=== PATIENT | female | born 1970 | race Caucasian/White ===

== ENCOUNTER → 2019-05-18 | Outpatient (CLI) | payer OTHER ==
[~2019-05-18] MED LIST: FLUO40CA2 PO
[2019-05-18 14:56] LABS: BASO % 1 % (0-3); EOS # 0.1 x10^3/uL (0.0-0.7); EOS % 2 % (0-3); HEMATOCRIT 28.8 % (36.0-47.0); HEMOGLOBIN 8.9 g/dL (12.0-15.5); LYMPH # 1.4 x10^3/uL (1.0-4.8); LYMPH % 27 % (24-48); MEAN CORPUSCULAR HEMOGLOBIN 21 pg (25-35); MEAN CORPUSCULAR HGB CONC 31 g/dL (31-37); MEAN CORPUSCULAR VOLUME 66 fL (79-100); MONO # 0.4 x10^3/uL (0.0-1.1); MONO % 8 % (0-9); NEUT # 3.3 x10^3/uL (1.8-7.7); NEUT % 62 % (31-73); PLATELET COUNT 192 x10^3/uL (140-400); RED BLOOD COUNT 4.37 x10^6/uL (3.50-5.40); RED CELL DISTRIBUTION WIDTH 20.1 % (11.5-14.5); WHITE BLOOD COUNT 5.3 x10^3/uL (4.0-11.0)
--- NOTE | 2019-05-18 15:03 | EKG ---
[facility] [address] [place] [address] Test Date: 2019-05-18 Test Time: 14:48:47 Pat Name: MARK ANTHONY YAN Department: Room: Gender: F [employer]: LUDIN : 1970 Requested By: MARIA ISABEL SCHULTE Order Number: [id number] Reading MD: Tomer Stratton MD Measurements Intervals [place] Rate: 58 P: 27 [place]: 146 QRS: 14 QRSD: 82 T: 11 QT: 404 QTc: 400 Interpretive Statements SINUS RHYTHM RBBB Electronically Signed On 05-19-2019 16:25:27 OFFICE ADMINISTRATOR by Tomer Stratton MD
[2019-05-18 15:08] LABS: ALBUMIN 3.7 g/dL (3.4-5.0); ALBUMIN/GLOBULIN RATIO 1.4 (1.0-1.7); CALCIUM 8.5 mg/dL (8.5-10.1); CREATININE 0.7 mg/dL (0.6-1.0); GFR 88.6; POTASSIUM 3.9 mmol/L (3.5-5.1); TOTAL BILIRUBIN 0.3 mg/dL (0.2-1.0); TOTAL PROTEIN 6.4 g/dL (6.4-8.2)
--- NOTE | 2019-05-18 15:48 | RAD ---
Chest, PA and Lateral: Technique: PA and lateral views of the chest were obtained. History: Preop hysterectomy. Comparison: None. Findings: The heart and pulmonary vasculature appear within normal limits. The lungs are clear. The pleural margins are clear. Impression: No acute chest process is seen. Electronically signed by: Prasad Ramirez MD (05/18/2019 3:45 PM) [place] [id number]
[2019-05-18 16:25] LABS: ANISOCYTOSIS MOD; HYPOCHROMIA MARKED; PLT ESTIMATE ADEQUATE (ADEQUATE)
[2019-05-18 16:26] LABS: MICROCYTOSIS MARKED; OVALOCYTES FEW
== END | disposition home or self-care (01) ==
LOC: SURGPAT 14:07
PROVIDERS: ATTEND Obstetrics & Gynecology
DX: Z01.818 Encounter for other preprocedural examination (principal); N85.2 Hypertrophy of uterus; I45.10 Unspecified right bundle-branch block
CPT/HCPCS: 36415; 71046; 80053; 85025; 93005

== ENCOUNTER 2019-05-25 06:12 | Observation (INO) | payer OTHER ==
[2019-05-25] VITALS (11 sets, daily range): BP systolic 110–120; BP diastolic 39–72
[~2019-05-25] VITALS: Ht 172.7 cm; Wt 124.7 kg
[~2019-05-25 06:12] MED LIST changes: +DESFLURANE > 120 MINUTES IH ONE; +DEXAMETHASONE SOD PHOS 4 MG/ML VIAL ONE; +LIDOCAINE 2% PF 5 ML VIAL. ONE; +ONDANSETRON PF 4 MG/2 ML VIAL. ONE; +PHENYLEPHRINE in 0.9% NACL PF 1 MG/10 ML SYRINGE. IV ONE; +PROPOFOL 20 ML IV ONE; +ROCURONIUM 50 MG/5 ML VIAL. ONE; +SUCCINYLCHOLINE 200 MG/10 ML VIAL. ONE; +fentaNYL PF VIAL 100 MCG/2 ML VIAL ONE
[2019-05-25] MEDS: IV RINGERS,LACTATED 1000ML 1,000 ML IV SCH ×2 (06:45→10:53)
[2019-05-25 06:53] LABS: HEMATOCRIT 30.1 % (36.0-47.0); HEMOGLOBIN 9.3 g/dL (12.0-15.5)
[2019-05-25] MEDS ORDERED: ONDANSETRON PF 4 MG/2 ML VIAL. IV PRN ×2 (07:00→10:30)
[2019-05-25] MEDS ORDERED: fentaNYL PF VIAL 100 MCG/2 ML VIAL IV PRN (07:00)
[2019-05-25] MEDS ORDERED: PROCHLORPERAZINE 10 MG/2 ML VIAL. IV PRN (07:00)
[2019-05-25] MEDS ORDERED: HYDROmorphone 2 MG/ML VIAL IV PRN (07:00)
[2019-05-25] MEDS ORDERED: MORPHINE SULFATE 2 MG/ML VIAL. IV PRN ×2 (07:00→10:30)
[2019-05-25] MEDS ORDERED: BUPIVACAINE-EPI 0.25%-1:200000 MPF 30 ML VIAL. ONE (07:27)
[2019-05-25] MEDS ORDERED: ESTROGENS, CONJ VAGINAL CREAM 30GM TUBE. ONE (07:27)
[2019-05-25] MEDS ORDERED: INDIGOTINDISULFONATE SODIUM 40 MG/5 ML AMPUL. ONE (07:28)
[2019-05-25] MEDS ORDERED: MIDAZOLAM HCL/PF 2 MG/2 ML VIAL. ONE (07:37)
[2019-05-25] MEDS: FLUoxetine HCL 20 MG CAPSULE PO SCH (09:00)
[2019-05-25] MEDS ORDERED: ALBUMIN HUMAN 5% 500 ML IV ONE (09:09)
[2019-05-25] MEDS ORDERED: ePHEDrine PF IN SALINE 50 MG/10 ML SYRINGE. IV ONE (09:09)
[2019-05-25] MEDS ORDERED: ROCURONIUM 50 MG/5 ML VIAL. ONE (09:14)
[2019-05-25] MEDS ORDERED: KETOROLAC 30 MG/ML VIAL. ONE (09:31)
[2019-05-25] MEDS ORDERED: GLYCOPYRROLATE 1 MG/5 ML VIAL. ONE (09:59)
[2019-05-25] MEDS ORDERED: NEOSTIGMINE METHYLSULFATE 5 MG/5 ML SYRINGE. ONE (09:59)
[2019-05-25] MEDS ORDERED: SEVOFLURANE > 120 MINUTES. IH ONE (10:10)
[2019-05-25] MEDS ORDERED: fentaNYL PF VIAL 100 MCG/2 ML VIAL ONE (10:11)
[2019-05-25] MEDS ORDERED: ZOLPIDEM 5 MG TABLET. PO PRN (10:30)
[2019-05-25] MEDS ORDERED: SIMETHICONE 80 MG TAB.CHEW PO PRN (10:30)
[2019-05-25] MEDS ORDERED: NALOXONE 0.4 MG/ML VIAL. IV PRN (10:30)
[2019-05-25] MEDS ORDERED: diphenhydrAMINE 50 MG/ML VIAL IV PRN (10:30)
[2019-05-25] MEDS ORDERED: LACTULOSE 20 GM/30 ML SOLUTION. PO PRN (10:30)
[2019-05-25] MEDS ORDERED: CALCIUM CARBONATE 500 MG TAB.CHEW PO PRN (10:30)
[2019-05-25] MEDS ORDERED: oxyCODONE/APAP 5/325 1 TAB TABLET PO PRN (10:30)
[2019-05-25] MEDS ORDERED: MAG HYDROX/ALUMINUM HYD/SIMETH 30 ML ORAL.SUSP PO PRN (10:30)
[2019-05-25] MEDS ORDERED: diphenhydrAMINE HCL 25 MG CAPSULE PO PRN (10:30)
[2019-05-25] MEDS ORDERED: ESTRADIOL WEEKLY 0.1 MG PATCH. TD ONE (10:30)
[2019-05-25] MEDS ORDERED: 0.9 % SODIUM CHLORIDE 10 ML DISP.SYRIN. IV PRN (10:30)
[2019-05-25] MEDS ORDERED: MAGNESIUM HYDROXIDE 2,400 MG/30 ML ORAL.SUSP. PO PRN (10:30)
--- NOTE | 2019-05-25 10:44 | PDOC ---
BRIEF OPERATIVE NOTE Date: May 25, 2019 Pre-Op Diagnosis DUB, anemia, enlarged uterus Post-Op Diagnosis same plus mild adhesive disease Procedure Performed LAVH/BSO/adhesiolysis Surgeon Dr. Maria Victoria Dowd Music Educator MANSI Rosales Anesthesiologist Dr. Nash Anesthesia Type: General Blood Loss 200cc IV Fluid 1300cc crystalloid, 500 albumin Urine Output 275cc clear via colon Specimens Obtained cervix, uterus, bilateral tubes and ovaries (cyst on right ovary also) Findings enlarged uterus, evidence of prior tubal occlusion, normal bilateral tubes, normal left ovary, right ovary with what appeared to be a small hemorrhagic cyst, adhesions to left IP ligament and just above Left tube/ovary that had to be taken down to visualize ureter Complications none Operative Note [id number] MARIA VICTORIA DOWD MD May 25, 2019 10:44
[2019-05-25] MEDS: fentaNYL PF VIAL 100 MCG/2 ML VIAL IV PRN ×2 (11:20→11:45)
[2019-05-25] MEDS ORDERED: ceFAZolin 2GM PREMIX 2 GM/50 ML BAG IV ONE (12:00)
--- NOTE | 2019-05-25 12:52 | OP ---
DATE OF SURGERY: 05/25/2019 PREOPERATIVE DIAGNOSES: Dysfunctional uterine bleeding with an enlarged uterus and menorrhagia to the point of anemia. She was 8 last week at her preop and she was up to 9 today the day of surgery. POSTOPERATIVE DIAGNOSES: Dysfunctional uterine bleeding with an enlarged uterus and menorrhagia to the point of anemia. She was 8 last week at her preop and she was up to 9 today the day of surgery plus mild adhesive disease. PROCEDURE PERFORMED: Laparoscopic-assisted vaginal hysterectomy, bilateral salpingo-oophorectomy, and adhesiolysis. SURGEON: Maria Isabel Dowd MD. MANAGER COMPLETIONS: MANSI Mckenzie. ANESTHESIOLOGIST: iTm Nash MD. ANESTHESIA: General. URINE OUTPUT: 275 mL clear via Shepherd catheter. BLOOD LOSS: 200 mL. INTRAVENOUS FLUIDS: 1300 mL of crystalloid and 500 mL of albumin. SPECIMENS: Cervix, uterus, bilateral tubes and ovaries with a cyst on the right ovary. FINDINGS: She had an enlarged uterus with evidence of prior tubal occlusion with Falope rings. Otherwise, normal tubes, normal left ovary, what appeared to be a small hemorrhagic cyst on the right ovary. She did have epiploic and descending colon adhesions to the left infundibulopelvic ligament that had to be taken down to visualize the left ureter going into the pelvis there. She had upper abdominal adhesions on the right and left side, I did not touch, those were taken down, they appeared to be omental, not exactly sure what those are from, it is her only abdominal surgery, had been a tubal but I did document and take pictures of that, but those were left alone. I did visualize a normal appendix as well. COMPLICATIONS: None. DESCRIPTION OF PROCEDURE: This patient was taken to the operating room where general anesthesia was placed. The patient was placed in dorsal lithotomy position in [facility]. The patient's abdomen and vagina were both prepped and draped in the normal sterile fashion and a Shepherd catheter had been inserted under sterile technique. She had already received her preoperative antibiotics as well. Upon my arrival, a timeout was performed. Once everyone agreed, a bivalve speculum was placed in the patient's vagina. A single-tooth tenaculum was used to grasp the anterior lip of the cervix. A 10 mL of 0.25% Marcaine with epinephrine was used to circumferentially inject around the cervix for both hemodissection and hemostatic purposes later. The Valtchev uterine manipulator was then placed through the endocervical os, locked on the single tooth tenaculum and the bivalve speculum was then removed. Top gloves were discarded and changed. Attention was then turned to the abdomen. It was decided with her enlarged uterus to do a left upper quadrant entry, so a small incision was made in the midclavicular area, a couple of centimeters down from the rib margin. A small incision was made. A Jennifer was used to dissect through the subcuticular layer to the fascia and the 5-mm Visiport was used to directly enter the abdominal cavity. Opening patient's pressure was 5-6 mmHg and direct abdominal placement was confirmed via the laparoscope. It was here that I could see the left upper quadrant omental adhesions on this side, but it was not where I was, but to the left of my port. At this point, the patient was placed in Trendelenburg. The overhead lights were dimmed. We placed left and right lower quadrant ports under direct visualization as well, making finding an area clear of any vasculature down there, all the inside was clear, so transilluminating the abdominal wall, finding an area clear of any vasculature, making a small incision in the skin and placing the 5 mm disposable atraumatic trocar under direct visualization without difficulty. 4-5 mL of air were placed in these trocar cuffs. At this point, the camera was moved to look at the left upper quadrant port. Again, it was confirmed, it was clear of all the adhesions and it was also insufflated with 4-5 mL of air in the trocar cuff. At this point, the patient was again already in Trendelenburg. The right upper quadrant appeared grossly normal, but she did have some adhesions in there as well. The uterus was enlarged and heavy but the posterior area was clear. I was able to get the right tube and ovary up very easily, but it had a cyst on there. The left tube and ovary had some scar tissue and adhesions. So, this is where I started. I took down because I needed to take down the adhesions because I could not visualize the ureter coming in and diving into the pelvis on this side. She was so long, waisted with the left upper quadrant port, I could get the camera down in the pelvis below the uterus. So at this point, now that I knew the umbilicus was clear, I did place a fourth 5 mm disposable atraumatic trocar at the umbilicus under direct visualization as well and I moved the camera down there to reach, so I had four 5-mm ports. So, once this was visualized, the left tube and ovary were easily elevated. The ureter was found coursing low and deep in the pelvis and watching it peristalsed, so staying high on the infundibulopelvic ligament under the ovary, cauterizing and cutting, taking it over towards the uterus crossing the left round ligament, cauterizing and cutting with the LigaSure and then starting the bladder flap on this side. The uterus was pushed cephalad. The Maryland was used to elevate the bladder flap. Once it was there and the monopolar hook was used to cauterize and cut across it and then peeling it down, so the bladder flap was created sharply under direct visualization without difficulty. Then, we went to the right side. Again, the right tube and ovary were clear of any adhesions. There was a cyst on this ovary that was elevated. The ureter was actually higher on this side and it kind of went up and then curved down and then dove down, so I made sure that we were very, very high under the ovary above the ureter because it was higher on the right side than the left side, but it was visualized and we did watch it peristalsed but I kind of went up and did a loop on the right sidewall, went up and then dove down. So staying high, she did wish both ovaries out staying high on the infundibulopelvic ligament, taking this ovary as well, staying right under the tube, right under the round ligament to the uterus and staying right on the uterus and crossing the round there to make sure that we were very clear of the ureter on the sidewall. Crossing the right round ligament, the peritoneal bladder flap was almost all the way over at this point. So, I went down hugging the uterus and getting the uterine vessels on this side and then I went back to the left and was able to hug the uterus and get the uterines on the left. The left was actually easier and cleared and the bladder was down and I was able to almost go all the way down to the uterosacral ligaments on the left under direct visualization and hugging the uterus with the cervix bulging behind me, cauterizing and cutting with the LigaSure. The right side had some more fatty adhesions under the bladder that had to be taken down, so I could get to the side of the cervix and go down and get some through the cardinal and broad ligaments, cauterizing and cutting, skeletonizing it out. I left some just because I knew I could get to it from the bottom and clear it up and off as well. So once I obtained the vasculature, the uterus was blanched, it was free posteriorly, the bladder was down anteriorly. I went ahead and decided to go below. All instruments were removed from the abdomen. The patient was flattened out. Overhead lights were turned on. Gas was turned off and everything was removed from the laparoscopic abdominal area and attention was turned vaginally. The single tooth and Valtchev were removed. A weighted speculum was placed in the patient's vagina. Thyroid Deepak clamps were placed on the anterior and posterior lips of the cervix respectively. A scalpel was used to make a circumferential incision in the cervix. An open Ray-Carolyn 4 x 4 was used to gently push up the anterior bladder peritoneum once it was skeletonized and it slid right in the anterior cul-de-sac. The Ray-Carolyn was removed and the curved Mary was placed in the anterior cul-de-sac. The cervix was elevated and the posterior cul-de-sac was sharply entered with the Arana scissors. A #0 Vicryl stitch was used to secure the posterior peritoneum here to the vaginal cuff. It was tagged with a curved Jennifer clamp and the needle was cut and passed off and it was tagged with a curved Jennifer. At this point, the short weighted vaginal speculum was removed and replaced with the long weighted Ainsley speculum in the posterior cul-de-sac. Curved Nan clamps x 2 were placed on the patient's left uterosacral ligament where they were doubly clamped with curved Heaneys, cut with curved Arana scissors and suture ligated x 2 with 0 Vicryl. Second one was taken through the vaginal cuff securing uterosacral ligament to the vaginal cuff and tagging it with a straight Jennifer clamp and cutting and passing the needle off. This was done exactly the same on the patient's right side, double clamping the uterosacrals with curved Nan's, cutting with Arana scissors, suture ligating x 2 with 0 Vicryl and taking it through the vaginal cuff, tagging it with a straight Jennifer clamp and cutting and passing the needle off. At this point, the right angle Mixter clamp was used to go around the remaining pedicles just to delineate it and the vaginal LigaSure was used to cauterize and cut the remaining pedicles on both sides. The cervix, uterus, bilateral tubes and ovaries were actually delivered in total and passed off for permanent pathology. There was some bleeding on the patient's left side of the uterosacral. Initially, it was grabbed with Russians and cauterized with the vaginal LigaSure. As I thought it was a little higher, I went ahead and put a burlisher on behind it and ended up placing a 2-0 Vicryl stitch around the burlisher with excellent results. There was some cuff bleeding that I put a few interrupted stitches securing the peritoneum to the vaginal cuff with excellent results and it stopped bleeding as well on both sides. The long Ainsley speculum was removed and replaced with the short weighted vaginal speculum, that is when the vaginal cuff bleeding was seen in a few interrupted stitches on both sides securing peritoneum to the vaginal cuffs were done with 2-0 Vicryl. Once this was done, a sponge stick was placed to secure the bleeding from above. All the pedicles at this point remained dry. The cuff was good. So, the sponge stick was removed and I attempted to find the anterior bladder edge, but it was very, very elevated, so I grasped a little bit of that fatty tissue that was just below the cuff and grabbed it. I took 2-0 Vicryl there through the left uterosacral ligament, posterior peritoneum and right uterosacral ligament, closing the peritoneum in a pursestring like fashion. Once this was done, the right and left uterosacral tags were clipped as well. At this point, a full length 2-0 Vicryl was used to close the vaginal cuff in an anterior to posterior running locked fashion and it was tied to that posterior cuff tag. I did place a few interrupted stitches just for hemostasis and security. Once this was done, a sponge stick was used to examine the cuff and there was absolutely no bleeding and it looked good. All instruments were removed from the vagina and attention was turned above for a second look. All sponge, lap and needle counts were correct x 2 by OR personnel. All gloves were discarded and changed before returning above. At this point, the lights were dimmed again. The patient was placed back in Trendelenburg. Gas was reinsufflated and a second look revealed complete hemostasis. She was copiously irrigated. Tisseel was placed over the pedicles. The right and left pericolic gutters were clear. The appendix was visualized and found and was normal and everything was dry, even over on the left side where I took down a few of the adhesions on the left IP ligament. Again, Tisseel had been placed over the vaginal cuff and the ovarian pedicles with excellent results. Pictures were taken of all the above. The gas was taken out of all 4 trocar sites. The left upper quadrant port was removed. The right lower quadrant port was removed. The left lower quadrant port was removed. First left upper, then right lower, then left lower and then gas was released from that umbilical port and then it was removed as well. All four port sites were closed with 4-0 nylon at the skin and injected with 0.25% Marcaine with epinephrine. 10-12 mL of local was used on these. Once this was done, the patient was awakened from anesthesia and brought to recovery room in stable condition. MARIA ISABEL DOWD MD DR: ROSA ISELA/connor JOB#: [id number] / [id number]
[2019-05-25] MEDS: HYDROcodone/APAP 5/325MG 1 TAB TABLET PO PRN (20:53)
[2019-05-26 02:10] VITALS: BP 122/50
[2019-05-26 04:26] LABS: CALCIUM 8.6 mg/dL (8.5-10.1); CREATININE 0.8 mg/dL (0.6-1.0); GFR 75.9; POTASSIUM 3.9 mmol/L (3.5-5.1)
[2019-05-26 06:30] VITALS: BP 127/58
[2019-05-26] MEDS: HYDROcodone/APAP 5/325MG 1 TAB TABLET PO PRN ×2 (06:34→10:29)
[2019-05-26 09:20] VITALS: BP 113/56
[2019-05-26 09:21] VITALS: BP 115/39
[2019-05-26 09:22] VITALS: BP 110/44
--- NOTE | 2019-05-26 09:26 | PDOC ---
SURGICAL PROGRESS NOTE Subjective Doing ok without complaints. Tolerating regular diet, voiding without catheter, ambulating well. No vaginal bleeding except scant spotting. Wants to go home. No complaints no dizziness or lighheadness Vital Signs Vital Signs Date Time Temp Pulse Resp B/P (MAP) Pulse Ox O2 Delivery O2 Flow Rate FiO2 05/26/19 06:34 20 05/26/19 06:30 98.1 75 127/58 (81) 93 Room Air 98.1 05/25/19 11:07 10 I&O Intake and Output 05/26/19 07:00 Intake Total 3670 ml Output Total 475 ml Balance 3195 ml Intake Oral 1020 ml IV Total 2250 ml Other 400 ml Output Urine Total 275 ml Estimated Blood Loss 200 ml # Voids 5 PATIENT HAS A WILSON: No General: Alert, Oriented X3, Cooperative, No acute distress HEENT: Atraumatic Heart: Regular rate Abdomen: Normal bowel sounds, Soft Extremities: No edema, Normal pulses, No tenderness/swelling, Other (negative homans bilaterally) Skin: No rashes, No breakdown, No significant lesion Neuro: Normal speech Psych/Mental Status: Mental status NL, Mood NL Labs Laboratory Tests Test 05/25/19 06:31 05/25/19 06:40 05/25/19 10:55 05/26/19 04:00 Bedside Urine HCG, Qualitative Hcg negative (Negative) Hemoglobin 9.3 g/dL (12.0-15.5) Hematocrit 30.1 % (36.0-47.0) 27.5 % (36.0-47.0) 25.8 % (36.0-47.0) Mean Corpuscular Hemoglobin Concent 31 g/dL (31-37) Sodium Level 144 mmol/L (136-145) Potassium Level 3.9 mmol/L (3.5-5.1) Chloride Level 107 mmol/L (98-107) Carbon Dioxide Level 28 mmol/L (21-32) Anion Gap 9 (6-14) Blood Urea Nitrogen 9 mg/dL (7-20) Creatinine 0.8 mg/dL (0.6-1.0) Estimated GFR (Cockcroft-Gault) 75.9 Glucose Level 127 mg/dL (70-99) Calcium Level 8.6 mg/dL (8.5-10.1) Laboratory Tests Test 05/25/19 10:55 05/26/19 04:00 Hematocrit 27.5 % (36.0-47.0) 25.8 % (36.0-47.0) Sodium Level 144 mmol/L (136-145) Potassium Level 3.9 mmol/L (3.5-5.1) Chloride Level 107 mmol/L (98-107) Carbon Dioxide Level 28 mmol/L (21-32) Anion Gap 9 (6-14) Blood Urea Nitrogen 9 mg/dL (7-20) Creatinine 0.8 mg/dL (0.6-1.0) Estimated GFR (Cockcroft-Gault) 75.9 Glucose Level 127 mg/dL (70-99) Calcium Level 8.6 mg/dL (8.5-10.1) I have reviewed the following labs, vitals, nursing, orthostastics Cardiovascular: No pertinent hx Pulmonary: No pertinent hx GI: No pertinent hx Heme/Onc: Anemia NOS Psych: No pertinent hx Infectious disease: No pertinent hx Assessment/Plan POD#1 s/p LAVH/BSO/adhesiolysis Routine po care chronic anemia, stable with a normal postoperative drop orthostatics prove pt stable she agrees to push fluids, iron bid will call if develops any symptoms has percocet script at home OK for otc iburprofen, prn keep scheduled follow up in one week with me NPV x 6 weeks light/limited x [address] while on narcotic pain meds and at least one week Call or return sooner for any other questions or concerns not limited to but including pain unrelieved with pain meds, increased or unexplained vaginal bleeding or T>100.4 MARIA ISABEL SCHULTE MD May 26, 2019 09:26
--- NOTE | 2019-05-26 09:30 | PDOC3 ---
Discharge Summary Visit Information Date of Admission: May 25, 2019 Date of Discharge: May 26, 2019 Final Diagnosis enlarged uterus, menorrhagia/dub to anemia Brief Hospital Course Allergies Allergies Coded Allergies Type Severity Reaction Last Updated Verified No Known Drug Allergies 05/25/19 No Vital Signs Vital Signs Date Time Temp Pulse Resp B/P (MAP) Pulse Ox O2 Delivery O2 Flow Rate FiO2 05/26/19 06:34 20 05/26/19 06:30 98.1 75 127/58 (81) 93 Room Air 98.1 05/25/19 11:07 10 Lab Results Laboratory Tests Test 05/25/19 06:31 05/25/19 06:40 05/25/19 10:55 05/26/19 04:00 Bedside Urine HCG, Qualitative Hcg negative (Negative) Hemoglobin 9.3 g/dL (12.0-15.5) Hematocrit 30.1 % (36.0-47.0) 27.5 % (36.0-47.0) 25.8 % (36.0-47.0) Mean Corpuscular Hemoglobin Concent 31 g/dL (31-37) Sodium Level 144 mmol/L (136-145) Potassium Level 3.9 mmol/L (3.5-5.1) Chloride Level 107 mmol/L (98-107) Carbon Dioxide Level 28 mmol/L (21-32) Anion Gap 9 (6-14) Blood Urea Nitrogen 9 mg/dL (7-20) Creatinine 0.8 mg/dL (0.6-1.0) Estimated GFR (Cockcroft-Gault) 75.9 Glucose Level 127 mg/dL (70-99) Calcium Level 8.6 mg/dL (8.5-10.1) Laboratory Tests Test 05/25/19 10:55 05/26/19 04:00 Hematocrit 27.5 % (36.0-47.0) 25.8 % (36.0-47.0) Sodium Level 144 mmol/L (136-145) Potassium Level 3.9 mmol/L (3.5-5.1) Chloride Level 107 mmol/L (98-107) Carbon Dioxide Level 28 mmol/L (21-32) Anion Gap 9 (6-14) Blood Urea Nitrogen 9 mg/dL (7-20) Creatinine 0.8 mg/dL (0.6-1.0) Estimated GFR (Cockcroft-Gault) 75.9 Glucose Level 127 mg/dL (70-99) Calcium Level 8.6 mg/dL (8.5-10.1) Brief Hospital Course Ms. Bower is a 48 old female who presented with DUB to anemia (hgb 8.3 on preop testing) with enlarged uterus. She underwent LAVH/BSO/adhesiolysis y esterday without complications. She has had an unremarkable postoperative course. She is anemic still of course since started that way , but asymptomatic with a normal expected drop from surgery only. Orthostatics stable, ambulating well, voiding, passing gas, tolerating regular diet and wants to go home. Pain well controlled with minimal meds Assessment Assessment POD#1 s/p LAVH/BSO/adhesiolysis Routine po care chronic anemia, stable with a normal postoperative drop orthostatics prove pt stable she agrees to push fluids, iron bid will call if develops any symptoms has percocet script at home OK for otc iburprofen, prn keep scheduled follow up in one week with me NPV x 6 weeks light/limited x [address] while on narcotic pain meds and at least one week Call or return sooner for any other questions or concerns not limited to but including pain unrelieved with pain meds, increased or unexplained vaginal bleeding or T>100.4 Discharge Information Condition at Discharge: Stable Follow Up: Weeks Disposition/Orders: D/C to Home Scheduled Fluoxetine Hcl (Fluoxetine Hcl) 40 Mg Capsule, 1 CAP PO [id number] for clarisse wynne, #30 Ref 2 (Reported) Entered as Reported by: Mira Meeks on 05/18/19 1421 Last Taken: Unknown Dose on 05/24/19 0800 Last Action: Converted on 05/25/19 0745 by MARIA ISABEL SCHULTE Patient Instructions Patient Instructions POD#1 s/p LAVH/BSO/adhesiolysis Routine po care chronic anemia, stable with a normal postoperative drop orthostatics prove pt stable she agrees to push fluids, iron bid will call if develops any symptoms has percocet script at home OK for otc iburprofen, prn keep scheduled follow up in one week with me NPV x 6 weeks light/limited x [address] while on narcotic pain meds and at least one week Call or return sooner for any other questions or concerns not limited to but including pain unrelieved with pain meds, increased or unexplained vaginal bleeding or T>100.4 Hemodynamically unstable?: No Hemodynamically unstable?: No Operative site or wounds?: Yes Poss blood loss?: Yes MARIA ISABEL SCHULTE MD May 26, 2019 09:30
[2019-05-26] MEDS: FLUoxetine HCL 20 MG CAPSULE PO SCH (10:28)
--- NOTE | 2019-05-27 08:07 | PATHOLOGY ---
[facility] Accession Number: [id number] . 01 Material submitted: . uterus - CERVIX, UTERUS, BILATERAL TUBES, BILATERAL OVARIES. Modifiers: bilateral . 01 Clinical history: . enlarged uterus . 02 Diagnosis: Uterus and bilateral fallopian tubes and ovaries, hysterectomy with bilateral salpingo-oophorectomy: - Adenomyosis, uterine corpus, with myometrial hypertrophy (uterine weight 179 grams). - Slightly disordered proliferative endometrium. - Leiomyomas, uterine corpus, intramural, few, the largest measuring 1.5 cm in greatest dimension. - Status post previous tubal ligation. - Paratubal cysts, bilateral. - Hemorrhagic luteinized cyst, right ovary. - Cystic follicle of left ovary. . (JPM:mm; 05/26/2019) [facility] 05/27/2019 0737 Local . 02 Comment: There is no atypia or evidence of malignancy. . (JPM:mml; 05/26/2019) . 02 Electronically signed: . Pedro Patel MD, Pathologist NPI- [id number] . 01 Gross description: . The specimen is received in formalin, labeled "Birttney Bower, cervix uterus bilateral tubes bilateral ovaries" and consists of an enlarged 179 g uterus with attached cervix measuring 11.0 x 7.1 x 5.0 cm. Attached are the bilateral tubo-ovarian complexes. The right weighs 10 g consisting of a fimbriated fallopian tube measuring 6.8 cm in length and up to 0.4 cm in diameter which is loosely attached to a ruptured cystic ovary measuring 4.3 x 1.8 x 0.9 cm. The left complex weighs 9 g consisting of a fimbriated fallopian tube measuring 4.5 cm in length and up to 0.5 cm in diameter attached to a cerebriform smooth cystic ovary measuring 2.3 x 2.3 x 0.8 cm. Both fallopian tubes are status post tubal ligation. The uterine serosa is pink-waters smooth shiny. The oval gaping cervical os (1.2 cm) is lined by glistening pink-waters ectocervical mucosa. It is bivalved revealing a pink-waters corrugated endocervical canal measuring 3.0 cm. The endometrial cavity is triangular measuring 6.0 cm in length and 4.6 cm in width which is lined by pink-red endometrium measuring 0.1 cm. The myometrium is pink-waters and measures up to 2.5 cm in thickness with three posterior intramural nodules measuring 0.5 x 0.5 cm and 1.5 x 1.3 cm. The 2 larger show homogeneous white whorled cut surfaces while the other smallest nodule shows yellow orange cut surfaces. No additional mass lesions are identified. Both fimbriated fallopian tubes are pink-purple smooth shiny with sectioning revealing a well-defined lumen. Each has a few paratubal cysts containing clear fluid measuring up to 1.2 cm. Sectioning the right ovary reveals a hemorrhagic chocolate cyst measuring 2.0 cm. Sectioning the left ovary reveals a single subcortical uniloculated cyst containing clear fluid as well as multiple corpora albicantia. The cyst measures up to 1.4 cm. Meter/Relay Craftsman sections are submitted as follows: . A1: Anterior cervix A2: Posterior cervix A3: Anterior endomyometrium A4: Posterior endomyometrium A5: Nodules A6: Right fallopian tube A7-A8: Right ovary A9: Left fallopian tube A10: Left ovary (SDY; 05/25/2019) SYU/SYU 05/26/2019 1619 Local . 02 Pathologist provided ICD-10: D25.1, N80.0, N85.9, N83.8 . 02 CPT . 235758 Specimen Comment: A courtesy copy of this report has been sent to [phone] Specimen Comment: Report sent to Specimen Comment: A duplicate report has been generated due to demographic updates. Performed at: 01 [facility] [address], [place], [place] [id number] MD Kwabena Deal MD Phone: [phone] Performed at: 02 [facility] [address] [place], [place] [id number] MD Pedro Patel MD Phone: [phone]
== END 2019-05-26 10:30 | disposition home or self-care (01) ==
LOC: SURG 06:12 → EDUNIT# 07:30 → 3 NORTH 10:44
PROVIDERS: ADMIT Obstetrics & Gynecology; ATTEND Obstetrics & Gynecology
DX: N93.8 Other specified abnormal uterine and vaginal bleeding (principal); N92.0 Excessive and frequent menstruation with regular cycle; N85.2 Hypertrophy of uterus
CPT/HCPCS: 36415; 58552; 80048; 81025; 85014; 85018; 86850; 86900; 86901; 88307; A7015; G0378; G0379; J0171; J0330; J0696; J1100; J2001; J2250; J2405; J2704; J2710; J3010; J3490; J7030; J7120; P9045; J1885; J2370

== ENCOUNTER 2021-07-02 10:00 | Day surgery (SDC) | payer OTHER ==
[~2021-07-02] VITALS: Ht 172.7 cm; Wt 120.0 kg
[~2021-07-02 10:00] MED LIST changes: +BUPIVACAINE-EPI 0.25% 30 ML VIAL KIT. ONE; +CAFF200T13 PO; -DESFLURANE > 120 MINUTES IH ONE; -DEXAMETHASONE SOD PHOS 4 MG/ML VIAL ONE; +HYDROmorphone 2 MG/ML INJ. IVP PRN; +IBUP-1027 PO; +IOHEXOL 300 MG/ML 50 ML VIAL. ONE; +IV RINGERS,LACTATED 1000ML 1,000 ML IV SCH; +LIDOCAINE 1% PF 5 ML VIAL. ONE; -LIDOCAINE 2% PF 5 ML VIAL. ONE; +MORPHINE SULFATE 2 MG/ML INJ. IVP PRN; -PHENYLEPHRINE in 0.9% NACL PF 1 MG/10 ML SYRINGE. IV ONE; +PROCHLORPERAZINE 10 MG/2 ML VIAL. IVP PRN; +PROPOFOL 10 MG/ML (20ML) VIAL. IV ONE; -PROPOFOL 20 ML IV ONE; -SUCCINYLCHOLINE 200 MG/10 ML VIAL. ONE; +SURGICEL HEMOSTAT 4X8 EACH. ONE; +ceFAZolin SODIUM 3 GM in IV DEXTROSE 5% 100ML 100 ML IV PRN; +fentaNYL PF VIAL 100 MCG/2 ML VIAL IVP PRN
[2021-07-02] MEDS ORDERED: ACETAMINOPHEN 500 MG TABLET PO ONE ×2 (10:05→10:30)
[2021-07-02] MEDS ORDERED: DEXAMETHASONE SOD PHOS 4 MG/ML VIAL ONE (10:13)
[2021-07-02 10:27] VITALS: BP 147/70
[2021-07-02] MEDS ORDERED: SUGAMMADEX SODIUM 200 MG/2 ML VIAL. IVP ONE (12:00)
--- NOTE | 2021-07-02 12:22 | PDOC4 ---
Operative Note Operative Note Date: July 02, 2021 at 12:20 PM Preoperative diagnosis: Chronic cholecystitis cholelithiasis Postoperative diagnosis: Same Procedure: Laparoscopic cholecystectomy fluorescein cholangiography Surgeon: Gabriel Specimen: Gallbladder Candy Feeder: None Dictation: Patient is a 50-year-old female with right upper quadrant abdominal pain ultrasound showing gallstones. Procedure of laparoscopic cholecystectomy was explained to the patient detail risk-benefit were also discussed including bleeding infection injury to intra-abdominal contents possible necessitating further open operations alternatives to this procedure also discussed with the patient who seemed to understand and gave a verbal written consent to have procedure performed. Patient was taken to the operating room placed in the supine position general anesthesia was initiated once patient was sleeping intubated her abdomen was prepped and draped usual sterile fashion using ChloraPrep. An area just below the umbilicus was injected with quarter percent Marcaine with epinephrine incision was made with 11 blade scalpel and a varies needle was placed within the abdomen creating pneumoperitoneum once this was completely millimeter port was placed in a 5 mm camera was placed within the abdomen which was inspected no other ab maladies were noted. 5 mm port was placed in the epigastrium a 5 mm port was placed in the right upper quadrant and a 5 mm port was placed in the lateral right abdomen all under direct visualization. The dome of the gallbladder is grasped retracted cephalad the infundibulum the gallbladder is grasped retracted laterally exposing the triangle of adherent tissues of the triangle were taken down exposing the cystic duct and cystic artery a fluorescein cholangiography was performed which showed good contrast material within the cystic duct and the common bile duct with no evidence of obstruction. The cystic duct was doubly clipped and transected as well as the cystic artery the gallbladder is taken off the liver with hook electrocautery placed in Endo Catch bag moving the umbilicus right upper quadrant was irrigated and suctioned dry hemostasis deemed be appropriate the pneumoperitoneum was reduced all ports were removed the fascial defect at the umbilicus was closed with a [id number] 0 Vicryl suture and skin was reapproximated all port sites for subcuticular Monocryl Mastisol Steri-Strips and island dressings were applied. Patient was awakened and extubated in the operating room taken to recovery in stable condition all sponge instrument needle counts listed as correct estimated blood loss 10 mL MAX REED MD Jul 02, 2021 12:22
[2021-07-02] MEDS ORDERED: OXYC-325 PO (12:24)
--- NOTE | 2021-07-02 12:26 | DISCH ---
DISCHARGE INSTRUCTIONS Condition on Discharge Condition on Discharge: Stable Activity After Discharge Activity Instructions for Disc: Avoid exertion Other activity instructions: No lifting more than 20 pounds for 2 Lifting Instructions after Dis: No heavy lifting Diet after Discharge Diet after Discharge: Low Fat Liquid Texture: Thin Liquid Wound Incision Care Other wound/incision instructi: Sparkle shower in 24-hour Contacting the DRViridiana after DC Call your doctor for: If your condition worsens Follow-Up Follow up with: Dr. Reed in 2 weeks Treatment/Equipment after DC Adaptive Equipment Issued: None MAX REED MD Jul 02, 2021 12:26
[2021-07-02] MEDS: fentaNYL PF VIAL 100 MCG/2 ML VIAL IVP PRN ×3 (12:44→13:09)
[2021-07-02] MEDS ORDERED: oxyCODONE/APAP 5/325 1 TAB TABLET PO ONE (13:00)
[2021-07-02 13:50] VITALS: BP 145/74
--- NOTE | 2021-07-03 18:08 | PATHOLOGY ---
[facility] Accession Number: [id number] . 01 Material submitted: . gallbladder - GALLBLADDER AND CONTENTS . 01 Clinical history: . LAP DIALLO . 02 Diagnosis: Gallbladder, laparoscopic cholecystectomy: - Cholelithiasis. - Cholesterolosis, focal. - Chronic cholecystitis. ([facility]; 07/03/2021) [facility] 07/03/2021 1441 Local . 02 Comment: There is no evidence of malignancy. ([facility]; 07/03/2021) . 02 Electronically signed: . Pedro Patel MD, Pathologist NPI- [id number] . 01 Gross description: . Fixative: Formalin Labeled: Gallbladder and contents Specimen received: A previously disrupted gallbladder Dimensions: 10.2 x 3.5 x 3.3 cm Serosa: Green, smooth and wrinkled Lymph node: Not identified Mucosa: Dark green-black and velvety Average wall thickness: Up to 0.5 cm Calculi: Multiple present displaying a bright yellow, nodular appearance and ranging in size from 0.3-0.8 cm, with multiple lodged within the cystic duct Abnormalities: None identified . A1- Residential Property Consultant body, fundus, and the cystic duct margin. ([facility]; 07/02/2021) N[facility]/NRI 07/02/2021 1750 Local . 02 Pathologist provided ICD-10: K80.10, K82.4 . 02 CPT . 598702 Specimen Comment: A courtesy copy of this report has been sent to [phone] Specimen Comment: [phone] Specimen Comment: Report sent to / DR STEWART Performed at: [address], [place], [place] [id number] MD Wyatt Thomas MD Phone: [phone] Performed at: [address] [id number] MD Pedro Patel MD Phone: [phone]
== END 2021-07-02 14:23 | disposition home or self-care (01) ==
LOC: SURG 10:00
PROVIDERS: ATTEND Surgery
DX: K80.10 Calculus of gallbladder with chronic cholecystitis without obstruction (principal); G47.30 Sleep apnea, unspecified; E66.9 Obesity, unspecified; F32.9 Major depressive disorder, single episode, unspecified; Z90.710 Acquired absence of both cervix and uterus; Z98.51 Tubal ligation status; Z98.890 Other specified postprocedural states; Z79.899 Other long term (current) drug therapy; Z72.89 Other problems related to lifestyle
CPT/HCPCS: 47563; A4213; A4364; A4930; A6219; J0780; J1100; J2405; J2704; J3010; J3490; A4657; Q9967